=== PATIENT | male | born 1975 | race Hispanic/Latino ===

== ENCOUNTER 2022-01-20 14:11 | Emergency (ER) | payer OTHER ==
[2022-01-20] MEDS ORDERED: Ibuprofen 200 MG TAB ONE (14:57)
== END 2022-01-20 18:00 | disposition home or self-care (01) ==
LOC: CSHERS 14:11
DX: S70.02XA Contusion of left hip, initial encounter (principal); F17.210 Nicotine dependence, cigarettes, uncomplicated; X58.XXXA Exposure to other specified factors, initial encounter
CPT/HCPCS: 72170

== ENCOUNTER 2024-02-25 22:12 | Emergency (ER) | payer OTHER, SELFPAY ==
[2024-02-25] MEDS ORDERED: Boostrix 0.5 ML (Tdap) VIAL (>/=7 yrs of age) ONE (22:52)
[2024-02-25] MEDS ORDERED: HYDROcodone/Acetaminophen 10/325 mg Tablet ONE (22:59)
[2024-02-25] MEDS ORDERED: Ibuprofen 200 MG TAB ONE (23:50)
== END 2024-02-25 23:54 | disposition home or self-care (01) ==
LOC: CSHERS 22:12
DX: M89.9 Disorder of bone, unspecified (principal); L08.9 Local infection of the skin and subcutaneous tissue, unspecified; F17.210 Nicotine dependence, cigarettes, uncomplicated; Z23 Encounter for immunization
CPT/HCPCS: 90471; 90715